=== PATIENT | female | born 1990 | race Two or more races ===

== ENCOUNTER 2024-03-01 18:42 | Emergency (ER) | payer OTHER ==
[~2024-03-01] VITALS: Ht 167.6 cm; Wt 70.3 kg
[2024-03-02 01:28] LABS: PH,URINE 6.5 (5.0-8.0); URINE APPEARANCE Clear; URINE BILIRRUBIN Negative (NEGATIVE); URINE BLOOD Negative; URINE COLOR Yellow; URINE GLUCOSE Negative (NEGATIVE); URINE LEUKOCYTE Negative; URINE NITRATE Negative; URINE PROTEIN Negative (NEGATIVE)
[2024-03-02 01:32] LABS: URINE BACTERIA 217.9 uL (0.0-1933); URINE EPITHELIAL CELLS 16.9 uL (0.0-38.8); URINE RBC 2.7 uL (0.0-20.8); URINE WBC 2.6 uL (0.0-23.2)
== END 2024-03-02 04:22 | disposition home or self-care (01) ==
LOC: ER 18:43
PROVIDERS: General Practice
DX: O20.8 Other hemorrhage in early pregnancy (principal); Z3A.01 Less than 8 weeks gestation of pregnancy